=== PATIENT | female | born 1955 | race Caucasian/White ===

== ENCOUNTER 2018-05-28 11:04 | Emergency (ER) | payer BC ==
[2018-05-28 11:12] VITALS: BP 138/84; PULSE 68; TEMP 98.7; BMI 25.0
--- NOTE | 2018-05-28 11:34 | PDOC ---
History of Present Illness - General Chief Complaint: Bite Stated Complaint: BITE Time Seen by Provider: 05/28/18 11:16 History Source: Patient Exam Limitations: No Limitations - History of Present Illness Initial Comments: 05/28/18 11:29 pt states she was stung by a bee to the right hand about 30 mins ago. 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 Pt has no history of anaphylaxsis has been stung before. Pt states she had cellulitus from the last bee sting she had. Past History - Past Medical History Allergies/Adverse Reactions: Allergies Allergy/AdvReac Type Severity Reaction Status Date / Time No Known Allergies Allergy Verified 05/28/18 11:09 Home Medications: Ambulatory Orders NK [No Known Home Medication] 05/28/18 COPD: No Thyroid Disease: Yes (Hypothyroid) - Suicide/Smoking/Psychosocial Hx Smoking History: Never smoked Have you smoked in the past 12 months: No Information on smoking cessation initiated: No Hx Alcohol Use: No Drug/Substance Use Hx: No Substance Use Type: None Review of Systems - Review of Systems Able to Perform ROS?: Yes Is the patient limited Irish proficient: No Integumentary: Yes: Symptoms Reported *Physical Exam - Vital Signs Last Vital Signs Temp Pulse Resp BP Pulse Ox 98.7 F 68 20 138/84 98 05/28/18 11:09 05/28/18 11:09 05/28/18 11:09 05/28/18 11:09 05/28/18 11:09 - Physical Exam General Appearance: Yes: Nourished, Appropriately Dressed HEENT: positive: EOMI, VICKEY Neck: positive: Supple Respiratory/Chest: positive: Lungs Clear, Normal Breath Sounds Cardiovascular: positive: Regular Rhythm, Regular Rate Extremity: positive: Normal Capillary Refill, Tender (right hand lateral side at wrist crease with sting site, no stinger. red, swollen. ) Integumentary: positive: Normal Color, Dry, Warm Neurologic: positive: Fully Oriented, Alert, Normal Mood/Affect, Normal Response , Motor Strength 5/5 Medical Decision Making - Medical Decision Making 05/28/18 11:33 cc: bee sting right hand redness, swelling noted ice pack and motrin wash with betadine follow with PMD if any worsening symptoms *DC/Admit/Observation/Transfer Diagnosis at time of Disposition: Bee sting Qualifiers: Encounter type: initial encounter Injury intent: accidental or unintentional Qualified Code(s): T63.441A - Toxic effect of venom of bees, accidental ( unintentional), initial encounter - Discharge Dispostion Disposition: HOME Condition at time of disposition: Improved - Referrals Referrals: ON STAFF,NOT [Primary Care Provider] - - Patient Instructions Printed Discharge Instructions: DI for Insect Bites and Stings Additional Instructions: ice every 2hrs for 20 minutes take benadryl 50mg every 6hrs as needed for itching take ibuprofen 600mg every 8hrs for swelling and pain apply a topical cortisone cream to the sting site 2-3 times a day (over the counter hydrocortisone) follow with your doctor in 2-3 days if any worsening swelling, redness is normal reaction from bee sting can sometimes last a few days - Post Discharge Activity
[2018-05-28] MEDS ORDERED: IBUPROFEN 100 MG/5 ML UNIT DOSE CUPS PO ONE (11:39)
[2018-05-28] MEDS ORDERED: IBUPROFEN 100 MG/5 ML UNIT DOSE CUPS ONE (11:43)
== END 2018-05-28 11:46 | disposition home or self-care (01) ==
LOC: JERFT 11:04
DX: T63.441A Toxic effect of venom of bees, accidental (unintentional), initial encounter (principal); R60.0 Localized edema; Y92.89 Other specified places as the place of occurrence of the external cause
CPT/HCPCS: 99281-25